=== PATIENT | male | born 1955 | race Caucasian/White ===

== ENCOUNTER 2016-09-12 06:15 | Emergency (ER) | payer BC ==
[~2016-09-12] VITALS: Ht 177.8 cm; Wt 95.6 kg
[~2016-09-12 06:15] MED LIST: ADVAIR 500-501 EACH IH; ADVAIR 500/501 DISK IH; ALBUTEROL2.5 MG/3 M; ALLEGRA180 MG PO; ASCORBIC ACID500 M3 PO; ASPIR-LOW81 MG PO; ATROVENT 0.03%30 ML BOTH NARES; ATROVENT H200 INHALA IH; BENICAR5 MG PO; BENZONATATE100 MG PO; CARAFATE100 MG/ML PO; CITRACAL + D3 PO; COLACE100 MG PO; FLOMAX0.4 MG PO; FLONASE16 G1 BOTH NARES; GLUCOPHAGE500 MG PO; JANUVIA100 MG PO; LODINE400 MG PO; LUTEIN20 MG PO; MONTELUKAST SOD10 MG PO; OMEGA 3 FISH OIL PO; PERCOCET 7.51 TABLET PO; PREVACID30 MG PO; PROTONIX40 MG PO; PROVENTIL17 GM IH; RANITIDINE HCL150 M1 PO; SIMVASTATIN40 MG PO; XALATAN2.5 ML BOTH EYES; [UNRECOGNIZED DRUG - OTHER] PO
[2016-09-12 06:33] LABS: HEMATOCRIT 46.9 % (38.0-50.0); MCH 28.5 PG (29.0-34.0); MCHC 32.2 G/DL (30.0-36.0); MCV 88.7 FL (86-99); PLATELET COUNT 259 K/uL (156-360); RBC DIS.WIDTH-CV 13.8 % (11.8-14.6); RBC DIS.WIDTH-SD 44.8 % (39-53); RED BLOOD COUNT 5.29 M/uL (4.00-5.50); WHITE BLOOD COUNT 6.5 K/uL (4.1-10.2)
[2016-09-12 06:42] LABS: CHLORIDE 107 mEq/L (99-109); POTASSIUM 4.1 mEq/L (3.7-5.4); SODIUM 141 mEq/L (136-147)
[2016-09-12 06:44] LABS: GLUCOSE 155 mg/dL (70-99)
[2016-09-12 06:45] LABS: ANION GAP 10 MEQ/L (2-14)
[2016-09-12 06:48] LABS: GFR ESTIMATE (CALCULATED) > 59 mL/min/
[2016-09-12 06:49] LABS: UREA NITROGEN (BUN) 33 mg/dL (9-23)
[2016-09-12 06:49] LABS: BILIRUBIN NEGATIVE; BLOOD NEGATIVE; COLOR AMBER ((YELLOW)); GLUCOSE (STRIP) NEGATIVE; KETONES 5; LEUKOCYTES NEGATIVE; NITRITE NEGATIVE; PROTEIN (STRIP) 30; SPECIFIC GRAVITY 1.038 (1.000-1.030); UROBILINOGEN 0.2 MG/DL (0.2-1.0)
[2016-09-12 06:51] LABS: ADD MIUA? NO; UCUL ADDED? NO
[2016-09-12] MEDS ORDERED: ZOFRAN ODT4 MG PO (07:15)
[2016-09-12] MEDS ORDERED: PERCOCET 5/31 TABLET PO (07:15)
[2016-09-12 08:00] VITALS: BP 146/85
== END 2016-09-12 08:12 | disposition home or self-care (01) ==
LOC: EME 06:15
DX: K85.90 Acute pancreatitis without necrosis or infection, unspecified (principal); E11.65 Type 2 diabetes mellitus with hyperglycemia; G89.29 Other chronic pain; R33.9 Retention of urine, unspecified; J45.909 Unspecified asthma, uncomplicated; I10 Essential (primary) hypertension; E78.5 Hyperlipidemia, unspecified; Z79.82 Long term (current) use of aspirin
CPT/HCPCS: 74176; 80048; 81003; 85027; 99281; 99285; J1885; J2270; J2405; J7030